=== PATIENT | female | born 1960 | race Two or more races ===

== ENCOUNTER 2020-05-04 20:04 | Inpatient (IN) | payer MEDICAID, OTHER ==
[~2020-05-04] VITALS: Ht 152.4 cm; Wt 66.8 kg
[2020-05-04] MEDS ORDERED: ACETAMINOPHEN 500 MG TAB PO ONE (20:30)
[2020-05-04 21:17] LABS: Basophils # (auto) 0 10 ^3/uL (0-0.2); Basophils % (auto) 0.6 % (0.0-2.0); Eosinophils # (auto) 0 10 ^3/uL (0-0.8); Hematocrit 41.3 % (36.0-46.0); Hemoglobin 14.1 g/dL (12.2-16.2); Lymphocytes # (auto) 0.6 10 ^3/uL (0.4-5.4); Lymphocytes % (auto) 8.5 % (10.0-50.0); Mean Corpuscular Hgb Conc. 34.2 g/dL (32.0-36.0); Mean Corpuscular Volume 90.7 fL (80.0-100.0); Monocytes # (auto) 0.4 10 ^3/uL (0-1.3); Monocytes % (auto) 5.8 % (0.0-12.0); Neutrophils % (auto) 85.1 % (37.0-80.0); Platelet Count (auto) 321 10^3/uL (140-450); Red Blood Cells 4.55 10^6/uL (4.0-5.20)
[2020-05-04 21:29] LABS: INR 0.97 (0.9-1.15); Partial Thromboplastin Time 31.3 sec (23.64-32.05)
[2020-05-04 21:33] LABS: Alanine Aminotransferase 106 U/L (13-56); Anion Gap 9 (5-15); Aspartate Aminotransferase 72 U/L (15-37); BUN/Creatinine Ratio 16.9; Blood Urea Nitrogen 15 mg/dL (7-18); Calcium 8.6 mg/dL (8.5-10.1); Carbon Dioxide 25 mmol/L (21-32); Chloride 97 mmol/L (98-107); GFR African American 83 mL/min; GFR Non-African American 69 mL/min; Glucose 188 mg/dL (74-106); Potassium 3.3 mmol/L (3.5-5.1); Sodium 131 mmol/L (136-145)
[2020-05-04 21:37] LABS: Alkaline Phosphatase 181 U/L (45-117); Bilirubin, Total 0.7 mg/dL (0.2-1.0); Total Protein 7.7 g/dL (6.4-8.2)
[2020-05-04] MEDS ORDERED: DOXYCYCLINE 100MG/250ML 250 ML IV ONE (22:15)
[2020-05-04] MEDS ORDERED: DexAMETHasone SOD PHOS 10MG/1ML VIAL INJ IV ONE (22:15)
[2020-05-05] MEDS ORDERED: TEMAZEPAM 15 MG CAP PO PRN (00:30)
[2020-05-05] MEDS ORDERED: ONDANSETRON HCL 4 MG/2 ML VIAL IV PRN ×2 (00:30→01:45)
[2020-05-05] MEDS ORDERED: ACETAMINOPHEN 500 MG TAB PO PRN ×2 (00:30→01:45)
[2020-05-05] MEDS ORDERED: DEXTROSE (50%) 50ML SYRG IV PRN ×2 (00:30→11:15)
[2020-05-05] MEDS ORDERED: NITROGLYCERIN 0.4 MG SL TAB SL PRN ×2 (00:30→01:45)
[2020-05-05] MEDS ORDERED: MORPHINE SULF INJ 2 MG/ML SYRINGE 1ML IV PRN ×3 (00:30→01:45)
[2020-05-05 01:02] LABS: Magnesium 2.1 mg/dL (1.6-2.6)
[2020-05-05 01:11] LABS: CRP High Sensitivity 16.5 mg/dL (< 0.3)
[2020-05-05] MEDS ORDERED: ENALAPRILAT 1.25 MG/ML-1ML VIAL IV ONE (01:15)
[2020-05-05] MEDS ORDERED: hydrOXYchloroQUINE SULFATE 200 MG TAB PO ONE (01:45)
[2020-05-05] MEDS ORDERED: AZITHROMYCIN 500MG/ 250ML 250 ML IV ONE (01:45)
[2020-05-05] MEDS ORDERED: DexAMETHasone SOD PHOS 4 MG/1ML SDV INJ IV ONE (01:45)
[2020-05-05 03:30] VITALS: BP 120/70
[2020-05-05] MEDS ORDERED: ALBUTEROL SULF HFA 90MCG INH 200DOSE IN SCH (06:00)
[2020-05-05] MEDS ORDERED: InsuLIN REG 1unit/0.01ml Soln (100units/ml) SC SCH (07:00)
[2020-05-05] MEDS ORDERED: ACCU-CHEK COMFORT CURVE STRIP VI SCH (07:00)
[2020-05-05 08:00] VITALS: BP 103/63
[2020-05-05] MEDS ORDERED: POTASSIUM CHL 20 Meq TABLET PO ONE (08:00)
[2020-05-05 08:34] VITALS: BP 103/63
[2020-05-05] MEDS: hydrOXYchloroQUINE SULFATE 200 MG TAB PO SCH (09:40)
[2020-05-05] MEDS: AZITHROMYCIN 500MG/ 250ML 250 ML IV SCH (09:40)
[2020-05-05] MEDS: DexAMETHasone SOD PHOS 10MG/1ML VIAL INJ IV SCH (09:40)
[2020-05-05] MEDS: CHOLECALCIFEROL (VITD3) 2,000 UNIT CAP PO SCH (09:41)
[2020-05-05 09:49] LABS: Basophils # (auto) 0 10 ^3/uL (0-0.2); Basophils % (auto) 0.2 % (0.0-2.0); Eosinophils # (auto) 0 10 ^3/uL (0-0.8); Hematocrit 44.4 % (36.0-46.0); Lymphocytes # (auto) 0.6 10 ^3/uL (0.4-5.4); Lymphocytes % (auto) 10.1 % (10.0-50.0); Mean Corpuscular Hemoglobin 31.1 pg (28.0-32.0); Mean Corpuscular Hgb Conc. 33.7 g/dL (32.0-36.0); Mean Corpuscular Volume 92.3 fL (80.0-100.0); Monocytes # (auto) 0.1 10 ^3/uL (0-1.3); Monocytes % (auto) 2.4 % (0.0-12.0); Neutrophils # (auto) 5.1 10 ^3/uL (1.6-8.6); Neutrophils % (auto) 87.3 % (37.0-80.0); Nucleated Red Blood Cells % 0.1 %; Platelet Count (auto) 400 10^3/uL (140-450); Red Blood Cells 4.81 10^6/uL (4.0-5.20); White Blood Cell 5.8 10^3/uL (4.4-10.8)
[2020-05-05] MEDS ORDERED: CHOLECALCIFEROL (VITD3) 2,000 UNIT CAP PO SCH (10:00)
[2020-05-05] MEDS ORDERED: FAMOTIDINE 20 MG TAB PO SCH (10:00)
[2020-05-05] MEDS ORDERED: HCTZ 25 MG TAB PO SCH (10:00)
[2020-05-05] MEDS ORDERED: ENOXAPARIN SOD 40 MG/0.4 ML SYRINGE SC SCH (10:00)
[2020-05-05] MEDS ORDERED: DOXYCYCLINE 100MG/250ML 250 ML IV SCH (10:00)
[2020-05-05] MEDS ORDERED: ASCORBIC ACID 1,000 MG TAB PO SCH (10:00)
[2020-05-05] MEDS ORDERED: DexAMETHasone SOD PHOS 10MG/1ML VIAL INJ IV SCH (10:00)
[2020-05-05] MEDS ORDERED: ENALAPRIL MALEATE 10 MG TAB PO SCH (10:00)
[2020-05-05] MEDS ORDERED: ZINC SULFATE 220mg CAP or TAB PO SCH (10:00)
[2020-05-05 10:07] LABS: Albumin 3.1 g/dL (3.4-5.0); BUN/Creatinine Ratio 16.3; Calcium 9.4 mg/dL (8.5-10.1); Potassium 3.9 mmol/L (3.5-5.1)
[2020-05-05 10:09] LABS: Bilirubin, Total 0.6 mg/dL (0.2-1.0); Total Protein 8.3 g/dL (6.4-8.2)
[2020-05-05] MEDS: ACCU-CHEK COMFORT CURVE STRIP VI SCH ×3 (12:10→21:51)
[2020-05-05] MEDS: InsuLIN REG 1unit/0.01ml Soln (100units/ml) SC SCH ×3 (12:11→21:55)
[2020-05-05 12:34] VITALS: BP 116/70
[2020-05-05] MEDS ORDERED: GLIP10TA9 PO (15:59)
[2020-05-05] MEDS ORDERED: HYDR12.56 PO (15:59)
[2020-05-05] MEDS ORDERED: ENAL2.5T7 PO (15:59)
[2020-05-05] MEDS ORDERED: FENO145T27 OR (15:59)
[2020-05-05 16:41] VITALS: BP 108/63
[2020-05-05] MEDS: glipiZIDE 5 MG TAB PO SCH (17:11)
[2020-05-05 22:00] VITALS: BP 122/72
[2020-05-06] VITALS (7 sets, daily range): BP systolic 98–123; BP diastolic 51–68
[2020-05-06] MEDS: ACCU-CHEK COMFORT CURVE STRIP VI SCH ×4 (06:54→22:54)
[2020-05-06] MEDS: InsuLIN REG 1unit/0.01ml Soln (100units/ml) SC SCH ×4 (06:55→22:55)
[2020-05-06] MEDS: glipiZIDE 5 MG TAB PO SCH ×2 (07:09→17:26)
[2020-05-06] MEDS: ENALAPRIL MALEATE 10 MG TAB PO SCH (09:21)
[2020-05-06] MEDS: hydrOXYchloroQUINE SULFATE 200 MG TAB PO SCH (09:21)
[2020-05-06] MEDS: DexAMETHasone SOD PHOS 10MG/1ML VIAL INJ IV SCH (09:21)
[2020-05-06] MEDS: HCTZ 25 MG TAB PO SCH (09:21)
[2020-05-06] MEDS: AZITHROMYCIN 500MG/ 250ML 250 ML IV SCH (09:21)
[2020-05-06] MEDS: CHOLECALCIFEROL (VITD3) 2,000 UNIT CAP PO SCH (09:22)
[2020-05-06 10:45] LABS: Basophils # (auto) 0 10 ^3/uL (0-0.2); Basophils % (auto) 0.1 % (0.0-2.0); Eosinophils # (auto) 0 10 ^3/uL (0-0.8); Neutrophils % (auto) 89.6 % (37.0-80.0)
[2020-05-06 10:48] LABS: Hematocrit 39.2 % (36.0-46.0); Hemoglobin 13.4 g/dL (12.2-16.2); Lymphocytes # (auto) 0.8 10 ^3/uL (0.4-5.4); Lymphocytes % (auto) 4.9 % (10.0-50.0); Mean Corpuscular Hgb Conc. 34.1 g/dL (32.0-36.0); Monocytes # (auto) 0.9 10 ^3/uL (0-1.3); Monocytes % (auto) 5.4 % (0.0-12.0); Platelet Count (auto) 484 10^3/uL (140-450); Red Blood Cells 4.31 10^6/uL (4.0-5.20); Red Cell Distribution Width 13.1 % (11.8-14.3); White Blood Cell 16.7 10^3/uL (4.4-10.8)
[2020-05-06 11:07] LABS: Potassium 3.7 mmol/L (3.5-5.1)
[2020-05-06 11:13] LABS: Albumin 2.8 g/dL (3.4-5.0); BUN/Creatinine Ratio 25.3; Bilirubin, Total 0.5 mg/dL (0.2-1.0); Calcium 8.8 mg/dL (8.5-10.1); Total Protein 7.4 g/dL (6.4-8.2)
[2020-05-06] MEDS: ALBUTEROL SULF HFA 90MCG INH 200DOSE IN SCH ×2 (13:57→21:54)
[2020-05-06] MEDS ORDERED: DexAMETHasone SOD PHOS 10MG/1ML VIAL INJ IV SCH (14:00)
[2020-05-07] VITALS (11 sets, daily range): BP systolic 108–137; BP diastolic 62–80
[2020-05-07] MEDS: ALBUTEROL SULF HFA 90MCG INH 200DOSE IN SCH ×3 (06:10→21:00)
[2020-05-07] MEDS: glipiZIDE 5 MG TAB PO SCH ×2 (06:30→17:05)
[2020-05-07] MEDS: ACCU-CHEK COMFORT CURVE STRIP VI SCH ×4 (06:31→22:12)
[2020-05-07] MEDS: InsuLIN REG 1unit/0.01ml Soln (100units/ml) SC SCH ×4 (06:31→22:14)
[2020-05-07] MEDS: ENALAPRIL MALEATE 10 MG TAB PO SCH (09:25)
[2020-05-07] MEDS: AZITHROMYCIN 500MG/ 250ML 250 ML IV SCH (09:25)
[2020-05-07] MEDS: DexAMETHasone SOD PHOS 10MG/1ML VIAL INJ IV SCH (09:25)
[2020-05-07] MEDS: HCTZ 25 MG TAB PO SCH (09:25)
[2020-05-07] MEDS: CHOLECALCIFEROL (VITD3) 2,000 UNIT CAP PO SCH (09:26)
[2020-05-07 10:11] LABS: Basophils # (auto) 0 10 ^3/uL (0-0.2); Basophils % (auto) 0.1 % (0.0-2.0); Eosinophils # (auto) 0 10 ^3/uL (0-0.8); Hematocrit 37.9 % (36.0-46.0); Hemoglobin 12.8 g/dL (12.2-16.2); Lymphocytes # (auto) 0.9 10 ^3/uL (0.4-5.4); Lymphocytes % (auto) 6.3 % (10.0-50.0); Mean Corpuscular Hemoglobin 30.7 pg (28.0-32.0); Mean Corpuscular Hgb Conc. 33.8 g/dL (32.0-36.0); Mean Corpuscular Volume 91.1 fL (80.0-100.0); Monocytes # (auto) 0.8 10 ^3/uL (0-1.3); Monocytes % (auto) 5.4 % (0.0-12.0); Neutrophils # (auto) 12.7 10 ^3/uL (1.6-8.6); Neutrophils % (auto) 88.2 % (37.0-80.0); Nucleated Red Blood Cells % 0.2 %; Platelet Count (auto) 470 10^3/uL (140-450); Red Blood Cells 4.16 10^6/uL (4.0-5.20); White Blood Cell 14.4 10^3/uL (4.4-10.8)
[2020-05-07 10:14] LABS: Albumin 2.6 g/dL (3.4-5.0); Calcium 8.6 mg/dL (8.5-10.1); Potassium 3.5 mmol/L (3.5-5.1)
[2020-05-07 10:18] LABS: BUN/Creatinine Ratio 24.7; Bilirubin, Total 0.6 mg/dL (0.2-1.0); Total Protein 7.1 g/dL (6.4-8.2)
[2020-05-07] MEDS ORDERED: REMDESIVIR 200 MG in NS 210ml LOADING DOSE ADULT IV ONE (18:00)
[2020-05-08 05:00] VITALS: BP 120/68
[2020-05-08 05:56] LABS: Basophils # (auto) 0 10 ^3/uL (0-0.2); Eosinophils # (auto) 0 10 ^3/uL (0-0.8); Eosinophils % (auto) 0.1 % (0.0-7.0); Lymphocytes # (auto) 1.1 10 ^3/uL (0.4-5.4); Monocytes # (auto) 0.7 10 ^3/uL (0-1.3)
[2020-05-08 05:58] LABS: Hematocrit 40.4 % (36.0-46.0); Hemoglobin 13.6 g/dL (12.2-16.2); Lymphocytes % (auto) 10.4 % (10.0-50.0); Mean Corpuscular Hemoglobin 30.9 pg (28.0-32.0); Mean Corpuscular Hgb Conc. 33.7 g/dL (32.0-36.0); Mean Corpuscular Volume 91.7 fL (80.0-100.0); Monocytes % (auto) 6.3 % (0.0-12.0); Neutrophils # (auto) 9.2 10 ^3/uL (1.6-8.6); Neutrophils % (auto) 83.2 % (37.0-80.0); Platelet Count (auto) 591 10^3/uL (140-450); Red Blood Cells 4.41 10^6/uL (4.0-5.20); Red Cell Distribution Width 12.9 % (11.8-14.3)
[2020-05-08 06:13] LABS: Calcium 8.9 mg/dL (8.5-10.1)
[2020-05-08 06:23] LABS: Albumin 2.6 g/dL (3.4-5.0); BUN/Creatinine Ratio 21.7; Bilirubin, Total 0.5 mg/dL (0.2-1.0); CRP High Sensitivity 12.9 mg/dL (< 0.3); Total Protein 7.6 g/dL (6.4-8.2)
[2020-05-08] MEDS: glipiZIDE 5 MG TAB PO SCH ×2 (06:52→18:35)
[2020-05-08] MEDS: ACCU-CHEK COMFORT CURVE STRIP VI SCH ×4 (06:53→22:04)
[2020-05-08] MEDS: InsuLIN REG 1unit/0.01ml Soln (100units/ml) SC SCH ×4 (06:57→22:06)
[2020-05-08] MEDS: ALBUTEROL SULF HFA 90MCG INH 200DOSE IN SCH ×3 (07:18→22:35)
[2020-05-08 09:00] VITALS: BP 123/69
[2020-05-08] MEDS: AZITHROMYCIN 500MG/ 250ML 250 ML IV SCH (10:58)
[2020-05-08] MEDS: DexAMETHasone SOD PHOS 10MG/1ML VIAL INJ IV SCH (10:58)
[2020-05-08] MEDS: CHOLECALCIFEROL (VITD3) 2,000 UNIT CAP PO SCH (11:01)
[2020-05-08] MEDS: HCTZ 25 MG TAB PO SCH (11:28)
[2020-05-08] MEDS: ENALAPRIL MALEATE 10 MG TAB PO SCH (11:29)
[2020-05-08 13:00] VITALS: BP 122/69
[2020-05-08 18:03] VITALS: BP 114/55
[2020-05-08] MEDS: REMDESIVIR 100mg in NS 230ml DAILYx4DAYS (NO VENT) IV SCH (18:17)
[2020-05-08 22:00] VITALS: BP 122/58
[2020-05-09 05:00] VITALS: BP 115/62
[2020-05-09] MEDS: InsuLIN REG 1unit/0.01ml Soln (100units/ml) SC SCH ×4 (06:12→22:20)
[2020-05-09] MEDS: ACCU-CHEK COMFORT CURVE STRIP VI SCH ×4 (06:12→22:19)
[2020-05-09 06:30] LABS: Basophils # (auto) 0 10 ^3/uL (0-0.2); Eosinophils # (auto) 0 10 ^3/uL (0-0.8); Eosinophils % (auto) 0.1 % (0.0-7.0)
[2020-05-09 06:32] LABS: Basophils % (auto) 0.2 % (0.0-2.0); Hematocrit 38.9 % (36.0-46.0); Hemoglobin 13.4 g/dL (12.2-16.2); Lymphocytes % (auto) 10.8 % (10.0-50.0); Mean Corpuscular Hemoglobin 31.2 pg (28.0-32.0); Mean Corpuscular Hgb Conc. 34.3 g/dL (32.0-36.0); Monocytes # (auto) 0.8 10 ^3/uL (0-1.3); Monocytes % (auto) 8.4 % (0.0-12.0); Neutrophils # (auto) 7.6 10 ^3/uL (1.6-8.6); Neutrophils % (auto) 80.5 % (37.0-80.0); Nucleated Red Blood Cells % 0.1 %; Platelet Count (auto) 646 10^3/uL (140-450); Red Blood Cells 4.28 10^6/uL (4.0-5.20); Red Cell Distribution Width 12.7 % (11.8-14.3); White Blood Cell 9.4 10^3/uL (4.4-10.8)
[2020-05-09 06:48] LABS: Calcium 8.7 mg/dL (8.5-10.1); Potassium 3.8 mmol/L (3.5-5.1)
[2020-05-09 06:53] LABS: Albumin 2.6 g/dL (3.4-5.0); BUN/Creatinine Ratio 27.4; Bilirubin, Total 0.5 mg/dL (0.2-1.0); Total Protein 7.2 g/dL (6.4-8.2)
[2020-05-09] MEDS: ALBUTEROL SULF HFA 90MCG INH 200DOSE IN SCH ×3 (06:55→22:05)
[2020-05-09] MEDS: glipiZIDE 5 MG TAB PO SCH ×2 (07:13→18:03)
[2020-05-09 09:00] VITALS: BP 129/65
[2020-05-09] MEDS: DexAMETHasone SOD PHOS 10MG/1ML VIAL INJ IV SCH (11:37)
[2020-05-09] MEDS: HCTZ 25 MG TAB PO SCH (11:38)
[2020-05-09] MEDS: OSELTAMIVIR 75 MG CAP PO SCH ×2 (11:38→22:19)
[2020-05-09] MEDS: AZITHROMYCIN 500MG/ 250ML 250 ML IV SCH (11:38)
[2020-05-09] MEDS: ENALAPRIL MALEATE 10 MG TAB PO SCH (11:39)
[2020-05-09] MEDS: CHOLECALCIFEROL (VITD3) 2,000 UNIT CAP PO SCH (11:39)
[2020-05-09 12:52] VITALS: BP 119/67
[2020-05-09 16:46] VITALS: BP 118/69
[2020-05-09] MEDS: REMDESIVIR 100mg in NS 230ml DAILYx4DAYS (NO VENT) IV SCH (18:26)
[2020-05-09 22:00] VITALS: BP 121/70
[2020-05-10 05:00] VITALS: BP 124/73
[2020-05-10] MEDS: ALBUTEROL SULF HFA 90MCG INH 200DOSE IN SCH ×3 (05:50→21:12)
[2020-05-10] MEDS: InsuLIN REG 1unit/0.01ml Soln (100units/ml) SC SCH ×4 (06:38→22:00)
[2020-05-10] MEDS: ACCU-CHEK COMFORT CURVE STRIP VI SCH ×4 (06:38→22:00)
[2020-05-10 06:58] LABS: Basophils # (auto) 0 10 ^3/uL (0-0.2); Basophils % (auto) 0.1 % (0.0-2.0); Eosinophils # (auto) 0 10 ^3/uL (0-0.8); Hemoglobin 13.6 g/dL (12.2-16.2); Lymphocytes # (auto) 1.3 10 ^3/uL (0.4-5.4); Mean Corpuscular Hgb Conc. 34.9 g/dL (32.0-36.0); Monocytes % (auto) 7.7 % (0.0-12.0)
[2020-05-10] MEDS: glipiZIDE 5 MG TAB PO SCH ×2 (06:58→17:58)
[2020-05-10 07:01] LABS: Eosinophils % (auto) 0.2 % (0.0-7.0); Hematocrit 38.8 % (36.0-46.0); Lymphocytes % (auto) 13.4 % (10.0-50.0); Mean Corpuscular Hemoglobin 31.6 pg (28.0-32.0); Mean Corpuscular Volume 90.5 fL (80.0-100.0); Monocytes # (auto) 0.8 10 ^3/uL (0-1.3); Neutrophils # (auto) 7.9 10 ^3/uL (1.6-8.6); Neutrophils % (auto) 78.6 % (37.0-80.0); Platelet Count (auto) 552 10^3/uL (140-450); Red Blood Cells 4.29 10^6/uL (4.0-5.20); White Blood Cell 10.1 10^3/uL (4.4-10.8)
[2020-05-10 07:17] LABS: Albumin 2.5 g/dL (3.4-5.0); Calcium 8.4 mg/dL (8.5-10.1); Potassium 3.6 mmol/L (3.5-5.1)
[2020-05-10 07:22] LABS: BUN/Creatinine Ratio 29.5; Bilirubin, Total 0.5 mg/dL (0.2-1.0); Total Protein 6.9 g/dL (6.4-8.2)
[2020-05-10 09:00] VITALS: BP 120/64
[2020-05-10] MEDS: ENALAPRIL MALEATE 10 MG TAB PO SCH (09:59)
[2020-05-10] MEDS: HCTZ 25 MG TAB PO SCH (10:00)
[2020-05-10] MEDS: DexAMETHasone SOD PHOS 10MG/1ML VIAL INJ IV SCH (10:01)
[2020-05-10] MEDS: CHOLECALCIFEROL (VITD3) 2,000 UNIT CAP PO SCH (10:01)
[2020-05-10] MEDS: OSELTAMIVIR 75 MG CAP PO SCH ×2 (10:01→22:00)
[2020-05-10 10:10] VITALS: BP 120/62
[2020-05-10 13:00] VITALS: BP 105/63
[2020-05-10 17:00] VITALS: BP 106/56
[2020-05-10] MEDS: REMDESIVIR 100mg in NS 230ml DAILYx4DAYS (NO VENT) IV SCH (17:58)
[2020-05-10 22:01] VITALS: BP 94/52
[2020-05-11 05:00] VITALS: BP 131/72
[2020-05-11] MEDS: ALBUTEROL SULF HFA 90MCG INH 200DOSE IN SCH ×3 (06:00→22:01)
[2020-05-11] MEDS: InsuLIN REG 1unit/0.01ml Soln (100units/ml) SC SCH ×4 (06:55→22:00)
[2020-05-11] MEDS: ACCU-CHEK COMFORT CURVE STRIP VI SCH ×4 (06:55→22:00)
[2020-05-11] MEDS: glipiZIDE 5 MG TAB PO SCH ×2 (06:55→18:11)
[2020-05-11 07:37] VITALS: BP 101/55
[2020-05-11 09:00] VITALS: BP 101/55
[2020-05-11 09:08] LABS: Hematocrit 41.2 % (36.0-46.0); Mean Corpuscular Hemoglobin 30.7 pg (28.0-32.0); Mean Corpuscular Hgb Conc. 33.9 g/dL (32.0-36.0); Mean Corpuscular Volume 90.5 fL (80.0-100.0); Platelet Count (auto) 589 10^3/uL (140-450); Red Blood Cells 4.55 10^6/uL (4.0-5.20); Red Cell Distribution Width 12.9 % (11.8-14.3); White Blood Cell 10.6 10^3/uL (4.4-10.8)
[2020-05-11 09:18] LABS: Basophils % (manual) 0 (0.0-2.0); Blast Cells 0; Promyelocytes % 0; Reactive Lymphocytes 0
[2020-05-11 09:29] LABS: Potassium 3.7 mmol/L (3.5-5.1)
[2020-05-11] MEDS: OSELTAMIVIR 75 MG CAP PO SCH ×2 (09:36→22:28)
[2020-05-11 09:37] LABS: Albumin 2.6 g/dL (3.4-5.0); BUN/Creatinine Ratio 31.6; Bilirubin, Total 0.5 mg/dL (0.2-1.0); Calcium 8.7 mg/dL (8.5-10.1); Total Protein 6.9 g/dL (6.4-8.2)
[2020-05-11] MEDS: DexAMETHasone SOD PHOS 10MG/1ML VIAL INJ IV SCH (09:37)
[2020-05-11] MEDS: CHOLECALCIFEROL (VITD3) 2,000 UNIT CAP PO SCH (09:37)
[2020-05-11] MEDS: HCTZ 25 MG TAB PO SCH (09:42)
[2020-05-11] MEDS: ENALAPRIL MALEATE 10 MG TAB PO SCH (09:42)
[2020-05-11 09:48] LABS: Band Neutrophils % (manual) 1; Eosinophils % (manual) 1 (0-7); Lymphocytes % (manual) 25 (10.0-50.0); Metamyelocytes % 1; Monocytes % (manual) 8 (0-12); Myelocytes % 1
[2020-05-11 12:52] VITALS: BP 105/59
[2020-05-11 17:09] VITALS: BP 106/52
[2020-05-11] MEDS: REMDESIVIR 100mg in NS 230ml DAILYx4DAYS (NO VENT) IV SCH (18:52)
[2020-05-11 22:00] VITALS: BP 108/60
[2020-05-11] MEDS: ASCORBIC ACID 500 MG TAB PO SCH (22:00)
[2020-05-12 05:00] VITALS: BP 130/76
[2020-05-12] MEDS: ALBUTEROL SULF HFA 90MCG INH 200DOSE IN SCH ×3 (06:00→22:00)
[2020-05-12] MEDS: glipiZIDE 5 MG TAB PO SCH ×2 (06:54→17:48)
[2020-05-12] MEDS: ACCU-CHEK COMFORT CURVE STRIP VI SCH ×4 (07:00→21:55)
[2020-05-12] MEDS: InsuLIN REG 1unit/0.01ml Soln (100units/ml) SC SCH ×4 (07:00→21:57)
[2020-05-12 07:06] LABS: Albumin 2.7 g/dL (3.4-5.0); Calcium 8.6 mg/dL (8.5-10.1); Potassium 3.7 mmol/L (3.5-5.1)
[2020-05-12 07:10] LABS: BUN/Creatinine Ratio 31.5; Bilirubin, Total 0.5 mg/dL (0.2-1.0); Total Protein 6.8 g/dL (6.4-8.2)
[2020-05-12 07:54] VITALS: BP 113/65
[2020-05-12 09:00] VITALS: BP 113/65
[2020-05-12] MEDS: DexAMETHasone SOD PHOS 10MG/1ML VIAL INJ IV SCH (09:31)
[2020-05-12] MEDS: THIAMINE 100mg/ml INJ (200mg/2ml VIAL) IV SCH (09:31)
[2020-05-12] MEDS: OSELTAMIVIR 75 MG CAP PO SCH ×2 (09:32→21:55)
[2020-05-12] MEDS: HCTZ 25 MG TAB PO SCH (09:32)
[2020-05-12] MEDS: ZINC SULFATE 220mg CAP or TAB PO SCH (09:32)
[2020-05-12] MEDS: ASCORBIC ACID 500 MG TAB PO SCH ×2 (09:33→21:55)
[2020-05-12] MEDS: ENALAPRIL MALEATE 10 MG TAB PO SCH (09:33)
[2020-05-12] MEDS ORDERED: CHOLECALCIFEROL (VITD3) 1,000UNIT=25mCg TAB PO SCH (10:00)
[2020-05-12 12:36] VITALS: BP 88/48
[2020-05-12] MEDS: CHOLECALCIFEROL (VITD3) 2,000 UNIT CAP PO SCH (12:59)
[2020-05-12 17:55] VITALS: BP 90/56
[2020-05-12] MEDS: ENOXAPARIN SOD 80 MG/0.8ML SYRINGE SC SCH (21:55)
[2020-05-12 22:00] VITALS: BP 89/60
[2020-05-13] VITALS (7 sets, daily range): BP systolic 94–107; BP diastolic 52–70
[2020-05-13] MEDS: ACCU-CHEK COMFORT CURVE STRIP VI SCH ×4 (06:20→22:00)
[2020-05-13] MEDS: InsuLIN REG 1unit/0.01ml Soln (100units/ml) SC SCH ×4 (06:21→22:00)
[2020-05-13] MEDS: ALBUTEROL SULF HFA 90MCG INH 200DOSE IN SCH ×3 (06:45→21:08)
[2020-05-13] MEDS: glipiZIDE 5 MG TAB PO SCH ×2 (06:49→17:55)
[2020-05-13] MEDS: HCTZ 25 MG TAB PO SCH (10:00)
[2020-05-13] MEDS: ENALAPRIL MALEATE 10 MG TAB PO SCH (10:00)
[2020-05-13] MEDS: OSELTAMIVIR 75 MG CAP PO SCH ×2 (10:22→22:00)
[2020-05-13] MEDS: ASCORBIC ACID 500 MG TAB PO SCH ×2 (10:22→22:00)
[2020-05-13] MEDS: ZINC SULFATE 220mg CAP or TAB PO SCH (10:23)
[2020-05-13] MEDS: ENOXAPARIN SOD 80 MG/0.8ML SYRINGE SC SCH ×2 (10:23→22:00)
[2020-05-13] MEDS: CHOLECALCIFEROL (VITD3) 2,000 UNIT CAP PO SCH (10:25)
[2020-05-13] MEDS: THIAMINE 100mg/ml INJ (200mg/2ml VIAL) IV SCH (10:25)
[2020-05-14 05:26] VITALS: BP 90/65
[2020-05-14] MEDS: glipiZIDE 5 MG TAB PO SCH (06:34)
[2020-05-14] MEDS: InsuLIN REG 1unit/0.01ml Soln (100units/ml) SC SCH (06:34)
[2020-05-14] MEDS: ACCU-CHEK COMFORT CURVE STRIP VI SCH (06:34)
[2020-05-14] MEDS: ALBUTEROL SULF HFA 90MCG INH 200DOSE IN SCH (07:23)
[2020-05-14 08:00] VITALS: BP 99/56
[2020-05-14 08:37] VITALS: BP 99/56
[2020-05-14 08:56] VITALS: BP 99/56
[2020-05-14] MEDS: ZINC SULFATE 220mg CAP or TAB PO SCH (09:52)
[2020-05-14] MEDS: OSELTAMIVIR 75 MG CAP PO SCH (09:52)
[2020-05-14] MEDS: CHOLECALCIFEROL (VITD3) 2,000 UNIT CAP PO SCH (09:52)
[2020-05-14] MEDS: ASCORBIC ACID 500 MG TAB PO SCH (09:52)
[2020-05-14] MEDS: ENOXAPARIN SOD 80 MG/0.8ML SYRINGE SC SCH (09:52)
[2020-05-14] MEDS: THIAMINE 100mg/ml INJ (200mg/2ml VIAL) IV SCH (09:55)
== END 2020-05-14 10:10 | disposition home health service (06) | DRG 137 ==
LOC: ER 20:04 → EDBD 20:04 → TELE 20:05 → TELE-EAST 05-05 02:45 → TELE-E-ADS 05-07 13:58
PROVIDERS: ADMIT Nurse Practitioner; ATTEND Internal Medicine
PROC: XW033E5 Introduction of Remdesivir Anti-infective into Peripheral Vein, Percutaneous Approach, New Technology Group 5 (ICD-10-PCS; principal; 2020-05-07)
DX: U07.1 COVID-19 (principal); J12.89 Other viral pneumonia; J96.01 Acute respiratory failure with hypoxia; E11.9 Type 2 diabetes mellitus without complications; I10 Essential (primary) hypertension; Z79.84 Long term (current) use of oral hypoglycemic drugs; Z79.899 Other long term (current) drug therapy; J98.11 Atelectasis; Z80.0 Family history of malignant neoplasm of digestive organs; Z82.5 Family history of asthma and other chronic lower respiratory diseases; Z83.3 Family history of diabetes mellitus
CPT/HCPCS: 36415; 71045; 76705; 80053; 82728; 82962; 83605; 83615; 83735; 83880; 84443; 84484; 85007; 85025; 85027; 85379; 85610; 85730; 86141; 87040; 87070; 87081; 87804; 87880; 93970; 94640; 96365; 96367; 96375; G0378; J1100; J1815; J3490

== ENCOUNTER 2025-04-13 22:05 | Inpatient (IN) | payer MEDICARE, OTHER ==
[~2025-04-13] VITALS: Ht 152.4 cm; Wt 95.0 kg
[~2025-04-13 22:05] MED LIST: ENAL1TAB42 PO; FENO145T27 OR; GLIP10TA9 PO; HYDR12.59 PO
[2025-04-13 22:42] LABS: Hematocrit 40.7 % (36.0-46.0); Hemoglobin 13.3 g/dL (12.2-16.2); Mean Corpuscular Hemoglobin 31.4 pg (28.0-32.0); Mean Corpuscular Volume 95.9 fL (80.0-100.0)
[2025-04-13 23:04] LABS: Alanine Aminotransferase 34 U/L (7-40); Albumin 3.9 g/dL (3.2-4.8); Alkaline Phosphatase 87 U/L (46-116); Anion Gap 12 (5-15); BUN/Creatinine Ratio 25.8 (10.0-20.0); Bilirubin, Total 0.8 mg/dL (0.2-1.0); Calcium 9.6 mg/dL (8.7-10.4); Carbon Dioxide 26 mmol/L (20-31); Potassium 4.6 mmol/L (3.5-5.1); Total Protein 6.2 g/dL (5.7-8.2)
[2025-04-13 23:05] LABS: Anisocytosis Slight; Total Cells Counted 100.0 (100)
[2025-04-13 23:06] LABS: Blood Urea Nitrogen 32 mg/dL (9-23); Chloride 91 mmol/L (98-107); Sodium 129 mmol/L (136-145)
[2025-04-13 23:16] LABS: Glucose 763 mg/dL (74-106)
[2025-04-14] VITALS (9 sets, daily range): BP systolic 95–122; BP diastolic 32–73; PULSE 78–96; RESP 14–18; TEMP 97.8–98.4; O2SAT 96–100
--- NOTE | 2025-04-14 00:14 | ED.PDOC ---
Musculoskeletal HPI Comments 65 y/o obese F, with a history of DM and HTN, presents with c/o bilateral leg swelling and pain and shortness of breath. Patient endorses on 3x day history of swelling and pain to her legs and becoming short of breath w/light exertion since yesterday. No recent trauma endorsed. No further significant history or recent travel reported. Patient denies any chest pain, numbness, tingling, weakness, or further associated symptoms. Chief Complaint: Extremity Swelling Time Seen by MD: 22:20 Reviewed Notes: Nurses Notes, Medications, Allergies Allergies: Coded Allergies: NO KNOWN ALLERGIES (Unverified , 05/04/20) Home Meds Reported Medications Hydrochlorothiazide (Hydrochlorothiazide) 12.5 Mg Cap, 12.5 MG PO DAILY for 30 Days, MG 05/05/20 Glipizide (Glipizide) 10 Mg Tab, 10 MG PO BID for 30 Days, MG 05/05/20 Enalapril Maleate (Enalapril Maleate) 2.5 Mg Tab, 20 MG PO DAILY for 30 Days, MG 05/05/20 Fenofibrate (FENOFIBRATE) 145 Mg Tab, 160 MG OR DAILY, TAB 05/05/20 Information Source: Patient Mode of Arrival: Ambulatory Location: Bilateral Extremity Location: Leg Timing: Days Prehospital treatment: None Severity: Moderate Able to Move Extremity: Yes Bear Weight: Fully Pain: Moderate Mechanism: None Circumstances: Other (none) Onset of Symptoms: Spontaneous Symptoms: Swelling, Pain DVT Risk Factors: NONE Last Tetanus: Unknown Past Medical History PAST MEDICAL HISTORY: DM, HTN Past Medical History (Other): Covid19 - PNA Surgical History: Denies all surgeries [employer] F[employer]ER History: Denies all AQU[employer]ER Hx Family History Family History: Reviewed,noncontributory to illness Social History Smoker: Non-Smoker Alcohol: Denies ETOH Use Drugs: Denies Drug Use Lives In: Home All Other Systems: Reviewed and Negative (Comprehensive systems review obtained and negative except for what is stated in the HPI.) Physical Exam General Appearance: No Apparent Distress, Obese HEENT: Normal ENT Inspection, Pharynx Normal, TMs Normal Neck: Full Range of Motion, Non-Tender, Normal, Normal Inspection Respiratory: Chest Non-Tender, Lungs Clear, No Accessory Muscle Use, No Respiratory Distress, Normal Breath Sounds Cardiovascular: No Edema, No JVD, No Murmur, No Gallop, Normal Peripheral Pulses, Regular Rate/Rhythm Breast Exam: Deferred Gastrointestinal: No Organomegaly, Non Tender, No Pulsatile Mass, Normal Bowel Sounds, Soft Genitalia: Deferred Pelvic: Deferred Rectal: Deferred Extremities: Leg edema (3+ pitting edema that extends up to the shins, bilaterally), No calf tenderness, Normal capillary refill, Normal range of motion, Swelling Musculoskeletal : Apperance: Normal Neurologic: Alert, corrections specialist II-XII nml as Tested, No Motor Deficits, Normal Affect, Normal Mood, No Sensory Deficits Cerebellar Function: Normal Reflexes: Normal Skin: Dry, Normal Color, Warm Lymphatic: No Adenopathy Was a procedure done? Was a procedure done?: No Differential Diagnosis EXT Differential Diagnosis: Cellulitis, CHF, Deep Vein Thrombosis, Contusion, Stra in, Arthritis X-Ray, Labs, Meds, VS Vital Signs Date Time Temp Pulse Resp B/P (MAP) Pulse Ox O2 Delivery O2 Flow Rate FiO2 04/13/25 22:17 97.5 92 18 142/60 (87) 95 97.5 Lab Test 04/13/25 23:24 04/13/25 22:29 Range/Units Troponin I High Sensitivity 4 4 </=34 ng/L White Blood Count 10.0 4.4-10.8 10^3/uL Red Blood Count 4.25 4.0-5.20 10^6/uL Hemoglobin 13.3 12.2-16.2 g/dL Hematocrit 40.7 36.0-46.0 % Mean Corpuscular Volume 95.9 80.0-100.0 fL Mean Corpuscular Hemoglobin 31.4 28.0-32.0 pg Mean Corpuscular Hemoglobin Concent 32.8 32.0-36.0 g/dL Red Cell Distribution Width 15.3 H 11.8-14.3 % Platelet Count 308 140-450 10^3/uL Mean Platelet Volume 7.8 6.9-10.8 fL Neutrophils (%) (Auto) 37.0-80.0 % Lymphocytes (%) (Auto) 10.0-50.0 % Monocytes (%) (Auto) 0.0-12.0 % Basophils (%) (Auto) 0.0-2.0 % Neutrophils # (Auto) 1.6-8.6 10 ^3/uL Lymphocytes # (Auto) 0.4-5.4 10 ^3/uL Monocytes # (Auto) 0-1.3 10 ^3/uL Differential Total Cells Counted 100.0 100 Neutrophils % (Manual) 95 H 37.0-80.0 Band Neutrophils % (Manual) 1 Lymphocytes % (Manual) 3 L 10.0-50.0 Monocytes % (Manual) 1 0-12 Eosinophils % (Manual) 0 0-7 Basophils % (Manual) 0 0.0-2.0 Metamyelocytes % (manual) 0 Myelocytes % (Manual) 0 Promyelocytes % (Manual) 0 Blast Cells % (Manual) 0 Reactive Lymphocytes 0 Platelet Estimate Adequate Anisocytosis (manual) Slight Sodium Level 129 L 136-145 mmol/L Potassium Level 4.6 3.5-5.1 mmol/L Chloride Level 91 L 98-107 mmol/L Carbon Dioxide Level 26 20-31 mmol/L Anion Gap 12 5-15 Blood Urea Nitrogen 32 H 9-23 mg/dL Creatinine 1.24 H 0.550-1.02 mg/dL Glomerular Filtration Rate Calc 48 >90 mL/min BUN/Creatinine Ratio 25.8 H 10.0-20.0 Serum Glucose 763 *H 74-106 mg/dL Calcium Level 9.6 8.7-10.4 mg/dL Total Bilirubin 0.8 0.2-1.0 mg/dL Aspartate Amino Transferase (AST) 20 13-40 U/L Alanine Aminotransferase (ALT) 34 7-40 U/L Alkaline Phosphatase 87 46-116 U/L B-Type Natriuretic Peptide 50.39 0-100 pg/mL Total Protein 6.2 5.7-8.2 g/dL Albumin 3.9 3.2-4.8 g/dL X-Ray, Labs, Meds, VS Comment Imaging: X-rays and CT scans were reviewed and interpreted by this provider, imaging shows no fractures and no pathological disease. Pending radiology review. Laboratory: Labs reviewed and interpreted by this provider. Elevated glucose, acute kidney training, patient will be admitted for hyperglycemia, and acute kidney injury Patient will be given 10 units insulin, blood sugars be checked T-score hours, patient will be started on normal saline bolus 1 L. Patient has prior medical visits reviewed. Med reconciliation performed Vital signs reviewed Time of 1ST Reevaluation: 22:50 Reevaluation 1ST: Unchanged Patient Education/Counseling: Diagnosis, Treatment Family Education/Counseling: No Family Present Additional Information Previous visits reviewed: May 04, 2020 encounter for PNA The following tests were ordered, and results were reviewed by me: CXR, UA, BNP, CBC, CMP, troponin, manual differential Additional Information was gathered from interviewing the following independent historians: N/A I reviewed and agreed with the following test results read by other providers: CXR I discussed treatment and results with medical personnel and: patient Departure 1 Departure Time of Disposition: 00:35 Impression: Primary Impression: Peripheral edema Additional Impressions: Hyperglycemia Acute kidney injury Disposition: ADMITTED INPATIENT Condition: Guarded Discharged With: Self Critical Care Note Critical Care Time?: No Stability Stability form required: No Heart Score Heart Score: Heart Score Response (Comments) Value History N/A 0 EKG N/A 0 Age N/A 0 Risk Factors N/A 0 Troponin N/A 0 Total 0 I personally scribed for RENITA CURRY ([email or web address]) on 04/14/25 at 00:14. Electronically submitted by Butch Palacios ([email or web address]). RENITA CURRY Apr 14, 2025 00:14
--- NOTE | 2025-04-14 00:24 | DVH ---
CHEST RADIOGRAPH Indication: sob Technique: Single frontal view of the chest was obtained COMPARISON: CHEST PORTABLE on DOS: 05/09/20, CHEST PORTABLE on DOS: 05/08/20, CHEST PORTABLE on DOS: , CHEST XRAY 1 VIEW on DOS: 05/04/20, CHEST PORTABLE on DOS: 05/04/20 FINDINGS: Lines and Tubes: None Lungs: Clear Pleura: No effusion. No pneumothorax. Cardiomediastinal contours: Unremarkable Bones: Unremarkable IMPRESSION: 1. No acute disease.
[2025-04-14] MEDS: InsuLIN REG 1unit/0.01ml Soln (100units/ml) SC ONE (01:56)
[2025-04-14] MEDS: SODIUM CHLORIDE 0.9% 1,000 ML IV ONE ×2 (01:56→14:45)
--- NOTE | 2025-04-14 04:14 | DVHHP2 ---
History of Present Illness Reason for Visit: Extremity swelling History of Present Illness 65-year-old female presents for evaluation of bilateral lower extremity swelling. Patient states the swelling has been going on for the past three days with associated shortness for breath with exertion. Denies chest pain, nausea or dizziness. Patient was also noted to be hyperglycemic, she reports being compliant with her diabetic medication. Past Medical History Hypertension diabetes mellitus Past Surgical History Denies Family History Noncontributory Smoke: No ALCOHOL: none Drugs: None Lives: with Family Review of Systems Review of Systems Review of systems are currently negative otherwise addressed in HPI. Allergies: Coded Allergies: NO KNOWN ALLERGIES (Unverified , 05/04/20) Exam Vital Signs Vital Signs Date Time Temp Pulse Resp B/P (MAP) Pulse Ox O2 Delivery O2 Flow Rate FiO2 04/14/25 02:00 85 17 118/51 (73) 99 04/14/25 00:37 98.2 98.2 Exam Gen: 65-year-old female in mild distress, obese Skin: Warm, dry, normal color and texture, no rash. HEENT: Normocephalic atraumatic, mucous membranes moist and pink. Neck: Cervical and supraclavicular nodes normal without enlargement, trachea is midline, thyroid gland is normal without masses. Pulmonary: Clear to auscultation and percussion bilaterally. Cardiac: Regular rate and rhythm. No murmur Abdomen: Soft, nontender, nondistended, bowel sounds present all 4 quadrants, no guarding, no rigidity, no organomegaly. Extremities: No cyanosis, clubbing, plus one bilateral pedal edema Neuro: Cranial nerves II through XII grossly intact, normal affect and speech, no focal motor deficits. Labs/Xrays ORDERING PHYSICIAN: RENITA CURRY PROCEDURE(s): CXR1 - CHEST XRAY 1 VIEW REASON: sob ORDER NUMBER(s): [id number], ACCESSION NUMBER(s): [id number] CHEST RADIOGRAPH Indication: sob Technique: Single frontal view of the chest was obtained COMPARISON: CHEST PORTABLE on DOS: 05/09/20, CHEST PORTABLE on DOS: 05/08/20, CH EST PORTABLE on DOS: 05/07/20, CHEST XRAY 1 VIEW on DOS: 05/04/20, CHEST PORTABLE on DOS: 05/04/20 FINDINGS: Lines and Tubes: None Lungs: Clear Pleura: No effusion. No pneumothorax. Cardiomediastinal contours: Unremarkable Bones: Unremarkable IMPRESSION: 1. No acute disease. Labs Test 04/14/25 02:49 04/13/25 23:24 04/13/25 22:29 Range/Units POC Glucose 327 H 70-106 mg/dl Troponin I High Sensitivity 4 </=34 ng/L White Blood Count 10.0 4.4-10.8 10^3/uL Red Blood Count 4.25 4.0-5.20 10^6/uL Hemoglobin 13.3 12.2-16.2 g/dL Hematocrit 40.7 36.0-46.0 % Mean Corpuscular Volume 95.9 80.0-100.0 fL Mean Corpuscular Hemoglobin 31.4 28.0-32.0 pg Mean Corpuscular Hemoglobin Concent 32.8 32.0-36.0 g/dL Red Cell Distribution Width 15.3 H 11.8-14.3 % Platelet Count 308 140-450 10^3/uL Mean Platelet Volume 7.8 6.9-10.8 fL Neutrophils (%) (Auto) 37.0-80.0 % Lymphocytes (%) (Auto) 10.0-50.0 % Monocytes (%) (Auto) 0.0-12.0 % Basophils (%) (Auto) 0.0-2.0 % Neutrophils # (Auto) 1.6-8.6 10 ^3/uL Lymphocytes # (Auto) 0.4-5.4 10 ^3/uL Monocytes # (Auto) 0-1.3 10 ^3/uL Differential Total Cells Counted 100.0 100 Neutrophils % (Manual) 95 H 37.0-80.0 Band Neutrophils % (Manual) 1 Lymphocytes % (Manual) 3 L 10.0-50.0 Monocytes % (Manual) 1 0-12 Eosinophils % (Manual) 0 0-7 Basophils % (Manual) 0 0.0-2.0 Metamyelocytes % (manual) 0 Myelocytes % (Manual) 0 Promyelocytes % (Manual) 0 Blast Cells % (Manual) 0 Reactive Lymphocytes 0 Platelet Estimate Adequate Anisocytosis (manual) Slight Sodium Level 129 L 136-145 mmol/L Potassium Level 4.6 3.5-5.1 mmol/L Chloride Level 91 L 98-107 mmol/L Carbon Dioxide Level 26 20-31 mmol/L Anion Gap 12 5-15 Blood Urea Nitrogen 32 H 9-23 mg/dL Creatinine 1.24 H 0.550-1.02 mg/dL Glomerular Filtration Rate Calc 48 >90 mL/min BUN/Creatinine Ratio 25.8 H 10.0-20.0 Serum Glucose 763 *H 74-106 mg/dL Calcium Level 9.6 8.7-10.4 mg/dL Total Bilirubin 0.8 0.2-1.0 mg/dL Aspartate Amino Transferase (AST) 20 13-40 U/L Alanine Aminotransferase (ALT) 34 7-40 U/L Alkaline Phosphatase 87 46-116 U/L B-Type Natriuretic Peptide 50.39 0-100 pg/mL Total Protein 6.2 5.7-8.2 g/dL Albumin 3.9 3.2-4.8 g/dL Assessment/Plan Assessment/Plan Assessment Uncontrolled diabetes mellitus Peripheral edema,? Heart failure Chronic kidney disease Hypertension Obesity Plan Admit the patient to Med [facility] to the hospitalist Q.4 hour Accu-Cheks with mild coverage Echocardiogram pending 40 mg Lasix daily Resume home medications Continue treatment per orders. Plan discussed with: Patient My Orders Orders - HAI MANTILLA Procedure Category Date Status Time Hemoglobin A1c LAB 04/14/25 Verified 04:07 Enalapril Tablet PHA 04/14/25 Verified (Vasotec Tablet) 10:00 (Nf) Fenofibrate PHA 04/14/25 Verified 22:00 Furosemide Tablet PHA 04/15/25 Verified (Lasix Tablet) 10:00 Basic Metabolic Panel LAB 04/15/25 Verified 04:00 Furosemide Injection PHA 04/14/25 Verified (Lasix Injection) 04:15 Consistent DIET 04/14/25 Verified Carb(Ccho)Diabetes Breakfast Glucose Blood PHA 04/14/25 Verified (Accu-Chek Comfort 08:00 Mild Sliding Scale PHA 04/14/25 Verified 08:00 Dextrose 50% Syringe PHA 04/14/25 Verified 04:15 Admit ADMIT 04/14/25 Verified 04:07 Ondansetron Hcl PHA 04/14/25 Verified (Zofran) 04:15 Echo 2d Mode Cardiac US 04/14/25 Verified DOP 04:07 Condition: Stable NATANAEL 04/14/25 Verified 04:07 Acetaminophen Tablet PHA 04/14/25 Verified (Tylenol Tablet) 04:15 Bedrest With Bathroom NATANAEL 04/14/25 Verified Privileg 04:07 Date of Service: Apr 14, 2025 Billing Provider: HAI MANTILLA Common Visit Codes: [id number] INP/OBS CARE (HIGH) HAI MANTILLA Apr 14, 2025 04:14
[2025-04-14] MEDS ORDERED: DEXTROSE (50%) 50ML SYRG IV PRN ×2 (04:15→18:15)
[2025-04-14] MEDS ORDERED: ONDANSETRON HCL 4 MG/2 ML VIAL IV PRN (04:15)
[2025-04-14] MEDS: FUROSEMIDE 20 MG/2 ML VIAL IV ONE (04:47)
[2025-04-14 04:52] LABS: Urine Budding Yeast OCCASIONAL /hpf (None Seen); Urine Protein, UAD Negative (Negative)
[2025-04-14] MEDS: InsuLIN REG 1unit/0.01ml Soln (100units/ml) SC SCH ×2 (08:00→22:18)
[2025-04-14] MEDS: ACCU-CHEK COMFORT CURVE STRIP VI SCH ×2 (08:00→22:09)
[2025-04-14] MEDS: ENALAPRIL MALEATE 10 MG TAB PO SCH (09:39)
[2025-04-14] MEDS: INSULIN LANTUS (GLARGINE) 1 /0.01ml (100units/ml) SC SCH (10:00)
[2025-04-14 10:55] LABS: Alanine Aminotransferase 36 U/L (7-40); Albumin 4.1 g/dL (3.2-4.8); Alkaline Phosphatase 80 U/L (46-116); Anion Gap 10 (5-15); BUN/Creatinine Ratio 30.1 (10.0-20.0); Calcium 9.7 mg/dL (8.7-10.4); Carbon Dioxide 29 mmol/L (20-31); Sodium 137 mmol/L (136-145); Total Protein 6.3 g/dL (5.7-8.2)
[2025-04-14 10:56] LABS: Bilirubin, Total 0.7 mg/dL (0.2-1.0); Blood Urea Nitrogen 25 mg/dL (9-23); Chloride 98 mmol/L (98-107); Glucose 311 mg/dL (74-106); Potassium 3.4 mmol/L (3.5-5.1)
[2025-04-14] MEDS: PREGABALIN 25 MG CAP PO SCH (15:27)
[2025-04-14] MEDS ORDERED: POTASSIUM CHL 20MEQ/100ML 100 ML IV ONE (16:15)
--- NOTE | 2025-04-14 17:26 | DVHPNRES ---
Progress Note Date Seen: Apr 14, 2025 Resident Creating Document: REYNALDO US RESIDENT Medical Necessity Reason Pt with a Central, PICC or Fol: No Subjective Review of Systems 65-year-old female with past history of diabetes mellitus and hypertension presented with bilateral swollen feet and numbness in the left foot since yesterday evening, which led to loss of balance. History of tingling and changes in the vision. No history of loss of consciousness, dizziness or bowel or bladder changes. Blood glucose at the time of presentation in ED was 763 mg/dL. Personal history: No alcohol smoking or recreational drugs ROS: Constitutional: Denies weight loss, fever and chills. HEENT: Changes in vision over last 3 years. Respiratory: Denies shortness of breath and cough Cardiovascular: Denies chest discomfort or palpitations GI: Denies abdominal pain, nausea, vomiting and diarrhea. : Denies dysuria and urinary frequency. Musculoskeletal: Denies myalgias and joint pain Skin: Denies rash and pruritus. Neurological: Denies dizziness, headache or hearing problems Objective vital signs Vital Sign Date Time Temp Pulse Resp B/P (MAP) Pulse Ox O2 Delivery O2 Flow Rate FiO2 04/14/25 16:54 98.4 85 16 108/54 (72) 98 98.4 04/14/25 14:15 Room Air* 0 21 Total Intake and Output 04/13/25 04/13/25 04/14/25 15:00 23:00 07:00 Intake Total 1000 ml Balance 1000 ml medications Current Medications Medications Dose Ordered Sig/Oniel Route Start Time Stop Time Status Last Admin Dose Admin Enalapril Maleate 20 mg DAILY PO 04/14/25 10:00 04/14/25 09:39 20 MG Patient Own Medication 160 mg HS PO 04/14/25 22:00 Future Hold Furosemide 40 mg DAILY PO 04/15/25 10:00 Diagnostic Test (Pha) 1 strip IQ4HR 04/14/25 08:00 04/14/25 15:35 1 STRIP Insulin Human Regular IQ4HR SC 04/14/25 08:00 04/14/25 15:36 8 UNITS Dextrose 50 ml UD PRN IV 04/14/25 04:15 Ondansetron HCl 4 mg Q4HP PRN IV 04/14/25 04:15 Acetaminophen 650 mg Q6HP PRN PO 04/14/25 04:15 Insulin Glargine 20 units DAILY@1000 SC 04/14/25 10:00 04/14/25 10:00 20 UNITS Pregabalin 25 mg BID PO 04/14/25 14:56 04/14/25 15:27 25 MG Examination Physical examination General: Patient alert and oriented in person, place and time. Patient following commands. HEENT: Normocephalic, atraumatic, moist mucous membranes Respiratory/pulmonary: Clear lungs bilaterally, no associated crackles or wheezes. Cardiovascular: Normal heart sounds S1 and S2 with no associated murmurs Extremities: Pitting edema present in lower extremities bilaterally. Sensation equal in both limbs. Bruising around the right wrist and left knee Skin: No rashes or pruritus. Neurological: Intact cranial nerves with no focal neurologic deficits laboratory and microbiology Laboratory Tests 04/14/25 05:50 04/13/25 22:29 Test 04/14/25 05:50 Range/Units Serum Glucose 311 H 74-106 mg/dL Problem List/Assessment/Plan Problem List/Assessment/Plan 1. Acute renal failure, prerenal, vasomotor nephropathy 2. Type 2 diabetes mellitus, hyperglycemia, neuropathy, nephropathy - A1c is 14 - Started on Lantus 20 units and regular insulin sliding scale - Increased BUN, creatinine - CXR is unremarkable - Ordered echocardiogram - Started normal saline infusion at 50 mL/hour to correct dehydration - Started on pregabalin 25 mg b.i.d. p.o. 3. DVT - Doppler done 4. Hyponatremia 5. Hypokalemia 6. Hypochloremia - Potassium was 3.4 mmol/L. Managed with bolus IV KCl 20 mEq. - Hyponatremia possibly due to hypoglycemia; Pseudohyponatremia - We will monitor patient for electrolyte abnormalities Goals of care discussed with the patient at bedside for more than 35 minutes. Plan discussed with Dr. Alegria Plan discussed with: Patient My Orders My Orders Orders - REYNALDO US Procedure Category Date Status Time Sodium Chloride 0.9% PHA 04/14/25 In Process 14:45 Pregabalin Capsule PHA 04/14/25 Logged (Lyrica Capsule) 14:56 Potassium Chl PHA 04/14/25 In Process 20meq/100ml 16:15 REYNALDO US RESIDENT Apr 14, 2025 17:26
[2025-04-14] MEDS: POTASSIUM EFFERVESENT TAB 25 MEQ PO ONE (17:57)
--- NOTE | 2025-04-14 19:18 | DVH ---
CLINICAL HISTORY: bilat isolated lower ext swelling TECHNIQUE: Color and duplex doppler imaging of the bilateral lower extremity veins was performed. Ves keon compression if possible was also performed. WID: COMPARISON: VENOUS DVT BILAT on DOS: 05/12/20 FINDINGS: Right Lower Extremity: Right common femoral vein: Normal compressibility and flow. Right femoral vein: Normal compressibility and flow. Right popliteal vein: Normal compressibility and flow. Proximal calf veins are normally compressible. Left Lower Extremity: Left common femoral vein: Normal compressibility and flow. Left femoral vein: Normal compressibility and flow. Left popliteal vein: Normal compressibility and flow. Proximal calf veins are normally compressible. IMPRESSION: NO SONOGRAPHIC EVIDENCE FOR DEEP VENOUS THROMBOSIS IN THE BILATERAL LOWER EXTREMITY VEINS.
[2025-04-14] MEDS ORDERED: FENOFIBRATE 160 MG PO SCH (22:00)
[2025-04-15] VITALS (8 sets, daily range): BP systolic 91–135; BP diastolic 47–77; PULSE 81–120; RESP 14–18; TEMP 97.6–99.9; O2SAT 91–98
--- NOTE | 2025-04-15 06:32 | DVHPNRES ---
Progress Note Date Seen: Apr 15, 2025 Resident Creating Document: REYNALDO US RESIDENT Medical Necessity Reason Pt with a Central, PICC or Fol: No Subjective Review of Systems Review of Systems 65-year-old female with past history of diabetes mellitus and hypertension presented with bilateral swollen feet and numbness in the left foot since, which led to loss of balance. History of tingling in both feet and changes in the vision. No history of loss of consciousness, dizziness, burning micturition or bowel or bladder changes. Blood glucose at the time of presentation in ED was 763 mg/dL. Personal history: No alcohol smoking or recreational drugs ROS: Constitutional: Denies weight loss, fever and chills. HEENT: Changes in vision over last 3 years. Respiratory: Denies shortness of breath and cough Cardiovascular: Denies chest discomfort or palpitations GI: Denies abdominal pain, nausea, vomiting and diarrhea. : Denies dysuria and urinary frequency. Musculoskeletal: Denies myalgias and joint pain Skin: Denies rash and pruritus. Neurological: Denies dizziness, headache or hearing problems Objective vital signs Vital Sign Date Time Temp Pulse Resp B/P (MAP) Pulse Ox O2 Delivery O2 Flow Rate FiO2 04/15/25 05:00 99.9 85 14 135/77 (96) 91 99.9 04/14/25 20:00 Room Air* 0 21 Total Intake and Output 04/14/25 04/14/25 04/15/25 15:00 23:00 07:00 Intake Total 0 ml 200 ml Balance 0 ml 200 ml medications Current Medications Medications Dose Ordered Sig/Oniel Route Start Time Stop Time Status Last Admin Dose Admin Enalapril Maleate 20 mg DAILY PO 04/14/25 10:00 04/14/25 09:39 20 MG Patient Own Medication 160 mg HS PO 04/14/25 22:00 Hold Furosemide 40 mg DAILY PO 04/15/25 10:00 Ondansetron HCl 4 mg Q4HP PRN IV 04/14/25 04:15 Acetaminophen 650 mg Q6HP PRN PO 04/14/25 04:15 Insulin Glargine 20 units DAILY@1000 SC 04/14/25 10:00 04/14/25 10:00 20 UNITS Pregabalin 25 mg BID PO 04/14/25 14:56 04/14/25 22:04 25 MG Diagnostic Test (Pha) 1 strip ACHS 04/14/25 22:00 04/15/25 06:16 1 STRIP Insulin Human Regular HS SC 04/14/25 22:00 04/14/25 22:18 6 UNITS Insulin Human Regular AC SC 04/15/25 07:00 Dextrose 50 ml UD PRN IV 04/14/25 18:15 Examination Physical examination General: Patient alert and oriented in person, place and time. Patient following commands. HEENT: Normocephalic, atraumatic, moist mucous membranes Respiratory/pulmonary: Clear lungs bilaterally, no associated crackles or wheezes. Cardiovascular: Normal heart sounds S1 and S2 with no associated murmurs Extremities: Pitting edema present in lower extremities bilaterally. Sensation equal in both limbs. Bruising around the right wrist and left knee Skin: No rashes or pruritus. Neurological: Intact cranial nerves with no focal neurologic deficits laboratory and microbiology laboratory and microbiology Laboratory Tests 04/14/25 05:50 04/13/25 22:29 Test 04/14/25 05:50 Range/Units Serum Glucose 311 H 74-106 mg/dL Problem List/Assessment/Plan Problem List/Assessment/Plan 1. Acute renal failure, prerenal, vasomotor nephropathy 2. Type 2 diabetes mellitus, hyperglycemia, neuropathy, nephropathy 3. Leukocytosis SIRS without acute organ damage - Neutrophilia seen on CBC - A1c is 14 - Continue on Lantus 20 units and regular insulin sliding scale - Increased BUN, creatinine - CXR is unremarkable - Ordered echocardiogram - Improvement in dehydration; Discontinued IV fluids - Continue pregabalin 25 mg b.i.d. p.o. 4. DVT - Doppler negative for DVT. 5. Hyponatremia 6. Hypokalemia 7. Hypochloremia - Potassium has normalized with treatment. - Hyponatremia possibly due to hypoglycemia; Pseudohyponatremia - We will monitor patient for electrolyte abnormalities Goals of care discussed with the patient at bedside for more than 35 minutes. Plan discussed with Dr. Alegria Plan discussed with: Patient My Orders My Orders Orders - REYNALDO US RESIDENT Procedure Category Date Status Time Sodium Chloride 0.9% PHA 04/14/25 In Process 14:45 Pregabalin Capsule PHA 04/14/25 Logged (Lyrica Capsule) 14:56 Complete Blood Count LAB 04/15/25 Logged 04:00 Glucose Blood PHA 04/14/25 In Process (Accu-Chek Comfort 22:00 Insulin R (Human) PHA 04/14/25 In Process (Insulin R) 22:00 Insulin R (Human) PHA 04/15/25 In Process (Insulin R) 07:00 Dextrose 50% Syringe PHA 04/14/25 In Process 18:15 REYNALDO US RESIDENT Apr 15, 2025 06:32
[2025-04-15] MEDS: InsuLIN REG 1unit/0.01ml Soln (100units/ml) SC SCH ×2 (06:56→16:32)
[2025-04-15 08:36] LABS: Chloride 98 mmol/L (98-107); Potassium 3.6 mmol/L (3.5-5.1); Sodium 138 mmol/L (136-145)
[2025-04-15 08:37] LABS: Calcium 9.8 mg/dL (8.7-10.4); Hematocrit 41.4 % (36.0-46.0); Hemoglobin 14.2 g/dL (12.2-16.2); Mean Corpuscular Hemoglobin 31.9 pg (28.0-32.0); Mean Corpuscular Volume 93.1 fL (80.0-100.0); Nucleated Red Blood Cells % 0.2 %
[2025-04-15 08:38] LABS: Anion Gap 11 (5-15); Carbon Dioxide 29 mmol/L (20-31)
[2025-04-15 08:43] LABS: BUN/Creatinine Ratio 22.9 (10.0-20.0); Blood Urea Nitrogen 16 mg/dL (9-23)
[2025-04-15 08:45] LABS: Glucose 168 mg/dL (74-106)
[2025-04-15] MEDS: FUROSEMIDE 40 MG TAB PO SCH (09:31)
[2025-04-15] MEDS ORDERED: DEXTROSE (50%) 50ML SYRG IV PRN (13:00)
[2025-04-15] MEDS: ACCU-CHEK COMFORT CURVE STRIP VI SCH (16:31)
--- NOTE | 2025-04-15 17:41 | DVHSR ---
APPROVED REPORT EXAM: LIMITED Two-dimensional and M-mode echocardiogram with Doppler and color Doppler. Blood Pressure: 115/67 mmHg INDICATION Dyspnea EF RISK FACTORS Obesity: Height: 5', Weight: 186 DIMENSIONS LVDd4.0 (3.8-5.7cm)LA (2D)3.4 (1.9-4.0cm)Aortic Root2.9 (2.0-3.7cm) LVDs2.8 (2.5-4.0cm)LA (MM) (1.9-4.0cm)Aortic Cusp Exc1.5 (1.5-2.0cm) EF (%) 56.0 (55-70%)Rt. Atrium3.2 (1.9-4.0cm)Asc. Aorta cm IVSd0.9 (0.7-1.1cm)RV (D) (1.8-2.4cm) PWd0.9 (0.7-1.1cm) Mitral Valve MitralMitral Stenosis E wave0.90m/sMV Mean GR.mmHg A wave1.40m/sMV Peak GR.mmHg E/A ratio0.62D MVAcm2 Aortic Valve Aortic ValveAortic Stenosis V11.00m/Albertina Mean GR.5mmHg V21.50m/Albertina Peak GR.10mmHg LVOT Diameter2.0 (1.8-2.4cm)Doppler AVA2.09cm2 Pulmonic Valve V20.70m/s Tricuspid Valve TR Velocity2.20m/s [id number] Other Information Quality : Technically LimitedRhythm : Technically limited study due to body habitus. Conclusion LVEF 60-65%, mild LVH. Mild diastolic dysfunction RV normal Valves not well visualized, grossly normal
[2025-04-15] MEDS: EMPAGLIFLOZIN 10 MG TAB PO SCH (17:49)
[2025-04-15 19:18] LABS: Hematocrit 35.8 % (36.0-46.0); Hemoglobin 12.5 g/dL (12.2-16.2); Mean Corpuscular Hemoglobin 32.3 pg (28.0-32.0); Mean Corpuscular Volume 92.3 fL (80.0-100.0); Nucleated Red Blood Cells % 0.1 %
[2025-04-15 19:30] LABS: Anion Gap 9 (5-15); Calcium 8.8 mg/dL (8.7-10.4); Carbon Dioxide 30 mmol/L (20-31)
[2025-04-15 19:31] LABS: Chloride 97 mmol/L (98-107); Potassium 3.3 mmol/L (3.5-5.1); Sodium 136 mmol/L (136-145)
[2025-04-15 19:35] LABS: BUN/Creatinine Ratio 22.9 (10.0-20.0); Blood Urea Nitrogen 19 mg/dL (9-23)
[2025-04-15 19:38] LABS: Glucose 234 mg/dL (74-106)
[2025-04-16] VITALS (8 sets, daily range): BP systolic 95–113; BP diastolic 57–73; PULSE 87–108; RESP 12–19; TEMP 98.1–100.2; O2SAT 93–97
[2025-04-16 09:43] LABS: Hematocrit 35.5 % (36.0-46.0); Hemoglobin 12.1 g/dL (12.2-16.2); Mean Corpuscular Hemoglobin 31.7 pg (28.0-32.0); Mean Corpuscular Volume 93.0 fL (80.0-100.0); Nucleated Red Blood Cells % 0.2 %
[2025-04-16 09:48] LABS: Chloride 98 mmol/L (98-107); Sodium 136 mmol/L (136-145)
[2025-04-16 09:49] LABS: Anion Gap 8 (5-15); Carbon Dioxide 30 mmol/L (20-31)
[2025-04-16 09:50] LABS: Calcium 8.8 mg/dL (8.7-10.4)
[2025-04-16 09:54] LABS: BUN/Creatinine Ratio 23.1 (10.0-20.0); Blood Urea Nitrogen 15 mg/dL (9-23)
[2025-04-16] MEDS: POTASSIUM EFFERVESENT TAB 25 MEQ PO ONE ×2 (09:58→11:21)
[2025-04-16 10:08] LABS: Glucose 166 mg/dL (74-106); Potassium 3.0 mmol/L (3.5-5.1)
[2025-04-16] MEDS: INSULIN LISPRO (HUMAN) 100 UNITS/ML ML SC SCH (16:37)
[2025-04-16 16:45] LABS: Potassium 3.5 mmol/L (3.5-5.1)
[2025-04-16] MEDS: ACETAMINOPHEN 325 MG TAB PO PRN (16:47)
[2025-04-16 16:51] LABS: Magnesium 1.7 mg/dL (1.6-2.6)
--- NOTE | 2025-04-16 16:54 | DVHPNRES ---
Progress Note Date Seen: Apr 16, 2025 Resident Creating Document: REYNALDO US RESIDENT Medical Necessity Reason Pt with a Central, PICC or Fol: No Subjective Review of Systems 65-year-old female with past history of diabetes mellitus and hypertension presented with bilateral swollen feet and numbness in the left foot, which led to loss of balance. History of tingling in both feet and changes in the vision. No history of loss of consciousness, dizziness, burning micturition or bowel or bladder changes. Blood glucose at the time of presentation in ED was 763 mg/dL. 04/16/25: Her swelling has reduced. Hypokalemia being managed with oral potassium supplementation as needed. Will continue monitoring & managing. Personal history: No alcohol smoking or recreational drugs ROS: Constitutional: Denies weight loss, fever and chills. HEENT: Changes in vision over last 3 years. Respiratory: Denies shortness of breath and cough Cardiovascular: Denies chest discomfort or palpitations GI: Denies abdominal pain, nausea, vomiting and diarrhea. : Denies dysuria and urinary frequency. Musculoskeletal: Denies myalgias and joint pain Skin: Denies rash and pruritus. Neurological: Denies dizziness, headache or hearing problems Objective vital signs Vital Sign Date Time Temp Pulse Resp B/P (MAP) Pulse Ox O2 Delivery O2 Flow Rate FiO2 04/16/25 13:00 98.9 95 16 106/63 (77) 93 98.9 04/16/25 08:00 Room Air* 0 21 Total Intake and Output 04/15/25 04/15/25 04/16/25 15:00 23:00 07:00 Intake Total 1800 ml 700 ml Balance 1800 ml 700 ml medications Current Medications Medications Dose Ordered Sig/Oniel Route Start Time Stop Time Status Last Admin Dose Admin Enalapril Maleate 20 mg DAILY PO 04/14/25 10:00 04/16/25 09:00 20 MG Patient Own Medication 160 mg HS PO 04/14/25 22:00 Hold Furosemide 40 mg DAILY PO 04/15/25 10:00 04/16/25 08:59 40 MG Ondansetron HCl 4 mg Q4HP PRN IV 04/14/25 04:15 Acetaminophen 650 mg Q6HP PRN PO 04/14/25 04:15 04/16/25 16:47 650 MG Insulin Glargine 20 units DAILY@1000 SC 04/14/25 10:00 04/16/25 11:29 20 UNITS Pregabalin 25 mg BID PO 04/14/25 14:56 04/16/25 08:59 25 MG Diagnostic Test (Pha) 1 strip ACHS 04/15/25 17:00 04/16/25 16:36 1 STRIP Insulin Human Regular ACHS SC 04/15/25 17:00 04/16/25 11:29 3 UNITS Dextrose 50 ml UD PRN IV 04/15/25 13:00 Empaglifozin 10 mg DAILY PO 04/15/25 17:45 04/16/25 08:58 10 MG Insulin Human Lispro 4 units AC SC 04/16/25 17:00 04/16/25 16:37 4 UNITS Examination General: Patient alert and oriented in person, place and time. Patient following commands. HEENT: Normocephalic, atraumatic, moist mucous membranes Respiratory/pulmonary: Clear lungs bilaterally, no associated crackles or wheezes. Cardiovascular: Normal heart sounds S1 and S2 with no associated murmurs Extremities: Pitting edema present in lower extremities bilaterally. Sensation equal in both limbs. Bruising around the right wrist and left knee. Skin: No rashes or pruritus. Neurological: Intact cranial nerves with no focal neurologic deficits laboratory and microbiology Laboratory Tests 04/16/25 16:07 04/16/25 09:24 Test 04/16/25 09:24 Range/Units Serum Glucose 166 H 74-106 mg/dL Problem List/Assessment/Plan Problem List/Assessment/Plan 1. Acute renal failure, prerenal, vasomotor nephropathy 2. Leukocytosis SIRS without acute organ damage - Labs show increased BUN, creatinine - Neutrophilia seen on CBC - CXR is unremarkable - Improvement in dehydration; Discontinued IV fluids. 3. Type 2 diabetes mellitus, hyperglycemia, neuropathy, nephropathy - A1c is 14 - Continue pregabalin 25 mg b.i.d. p.o. - Hyperglycemia managed with Lantus and regular insulin sliding scale - Started on basal bolus insulin. Continue Lantus 20 units. Start lispro 4 units with before each meal. - Nephropathy ruled out 4. Hypertension - Echocardiogram shows left mild LVH, possibly due to hypertension. Mild diastolic dysfunction. - Continue furosemide 40 mg and enalapril 20 mg daily 4. DVT 5. Venous insufficiency - Doppler negative for DVT. 6. Hyponatremia 7. Hypokalemia 8. Hypochloremia - K+ 3.0 mg per dL. Oral potassium supplementation for hypokalemia. - Hyponatremia possibly due to hypoglycemia; Pseudohyponatremia - We will continue monitoring and managing Goals of care discussed with the patient at bedside for more than 35 minutes. Code- full Plan discussed with Dr. Alegria Plan discussed with: Patient My Orders My Orders Orders - REYNALDO US Procedure Category Date Status Time Potassium LAB 04/16/25 In Process 14:54 Magnesium LAB 04/16/25 In Process 14:54 Complete Blood Count LAB 04/17/25 Verified 04:00 Comprehensive LAB 04/17/25 Verified Metabolic Panel 04:00 REYNALDO US RESIDENT Apr 16, 2025 16:54
[2025-04-17 01:00] VITALS: BP 108/56; PULSE 91; RESP 18; TEMP 98.5; O2SAT 97
[2025-04-17 05:00] VITALS: BP 113/68; PULSE 84; RESP 18; TEMP 98.1; O2SAT 97
[2025-04-17 07:21] LABS: Hematocrit 36.5 % (36.0-46.0); Hemoglobin 12.5 g/dL (12.2-16.2); Mean Corpuscular Hemoglobin 31.7 pg (28.0-32.0); Mean Corpuscular Volume 92.5 fL (80.0-100.0); Nucleated Red Blood Cells % 0.0 %
[2025-04-17 07:44] LABS: Alanine Aminotransferase 31 U/L (7-40); Albumin 3.6 g/dL (3.2-4.8); Alkaline Phosphatase 93 U/L (46-116); Anion Gap 12 (5-15); BUN/Creatinine Ratio 20.9 (10.0-20.0); Bilirubin, Total 1.1 mg/dL (0.2-1.0); Blood Urea Nitrogen 14 mg/dL (9-23); Calcium 9.2 mg/dL (8.7-10.4); Carbon Dioxide 28 mmol/L (20-31); Glucose 103 mg/dL (74-106); Sodium 137 mmol/L (136-145)
[2025-04-17 07:51] LABS: Chloride 97 mmol/L (98-107); Potassium 3.1 mmol/L (3.5-5.1); Total Protein 5.6 g/dL (5.7-8.2)
[2025-04-17 08:00] VITALS: PULSE 74; RESP 17
[2025-04-17] MEDS: POTASSIUM CHL 20 Meq TABLET PO ONE (08:42)
[2025-04-17 09:00] VITALS: BP 107/62; PULSE 75; RESP 18; TEMP 98.4; O2SAT 99
[2025-04-17] MEDS: POTASSIUM EFFERVESENT TAB 25 MEQ PO ONE (12:08)
[2025-04-17 13:45] VITALS: BP 112/69; TEMP 36.9
--- NOTE | 2025-04-17 13:59 | DVHDSRES ---
Discharge Summary Date of Admission Resident Creating Document: CLAUDETTE THORNTON RESIDENT Apr 14, 2025 at 04:07 Date of Discharge: Apr 17, 2025 Labs/Diagnostic Data: Laboratory Results Test 04/17/25 06:38 04/17/25 06:14 04/16/25 16:07 04/14/25 05:50 POC Glucose 111 mg/dl (70-106) White Blood Count 8.3 10^3/uL (4.4-10.8) Red Blood Count 3.95 10^6/uL (4.0-5.20) Hemoglobin 12.5 g/dL (12.2-16.2) Hematocrit 36.5 % (36.0-46.0) Mean Corpuscular Volume 92.5 fL (80.0-100.0) Mean Corpuscular Hemoglobin 31.7 pg (28.0-32.0) Mean Corpuscular Hemoglobin Concent 34.3 g/dL (32.0-36.0) Red Cell Distribution Width 14.7 % (11.8-14.3) Platelet Count 239 10^3/uL (140-450) Mean Platelet Volume 7.3 fL (6.9-10.8) Neutrophils (%) (Auto) 72.5 % (37.0-80.0) Lymphocytes (%) (Auto) 20.1 % (10.0-50.0) Monocytes (%) (Auto) 6.8 % (0.0-12.0) Eosinophils (%) (Auto) 0.4 % (0.0-7.0) Basophils (%) (Auto) 0.2 % (0.0-2.0) Neutrophils # (Auto) 6.0 10 ^3/uL (1.6-8.6) Lymphocytes # (Auto) 1.7 10 ^3/uL (0.4-5.4) Monocytes # (Auto) 0.6 10 ^3/uL (0-1.3) Eosinophils # (Auto) 0 10 ^3/uL (0-0.8) Basophils # (Auto) 0 10 ^3/uL (0-0.2) Nucleated Red Blood Cells 0.0 % Sodium Level 137 mmol/L (136-145) Potassium Level 3.1 mmol/L (3.5-5.1) Chloride Level 97 mmol/L (98-107) Carbon Dioxide Level 28 mmol/L (20-31) Anion Gap 12 (5-15) Blood Urea Nitrogen 14 mg/dL (9-23) Creatinine 0.67 mg/dL (0.550-1.02) Glomerular Filtration Rate Calc 96 mL/min (>90) BUN/Creatinine Ratio 20.9 (10.0-20.0) Serum Glucose 103 mg/dL (74-106) Calcium Level 9.2 mg/dL (8.7-10.4) Total Bilirubin 1.1 mg/dL (0.2-1.0) Aspartate Amino Transferase (AST) 25 U/L (13-40) Alanine Aminotransferase (ALT) 31 U/L (7-40) Alkaline Phosphatase 93 U/L (46-116) Total Protein 5.6 g/dL (5.7-8.2) Albumin 3.6 g/dL (3.2-4.8) Magnesium Level 1.7 mg/dL (1.6-2.6) Hemoglobin A1c > 14.0 % A1C (<5.7) Test 04/14/25 04:20 04/13/25 23:24 04/13/25 22:29 Urine Color Colorless (Yellow) Urine Clarity Clear (Clear) Urine pH 5.0 (5.0-9.0) Urine Specific [place] 1.031 (1.001-1.035) Urine Protein Negative (Negative) Urine Ketones Negative (Negative) Urine Blood Negative /uL (Negative) Urine Nitrite 2+ (Negative) Urine Bilirubin Negative (Negative) Urine Urobilinogen Normal mg/dL (Negative) Urine Leukocyte Esterase Trace /uL (Negative) Urine RBC 4 /hpf (0 - 4) Urine Microscopic WBC 3 /HPF (0-5) Urine Squamous Epithelial Cells Few /hpf (<5) Urine Bacteria None seen /hpf (None Seen) Urine Yeast (Budding) Occasional /hpf (None Urine Glucose 4+ mg/dL (Normal) Troponin I High Sensitivity 4 ng/L (</=34) Differential Total Cells Counted 100.0 (100) Neutrophils % (Manual) 95 (37.0-80.0) Band Neutrophils % (Manual) 1 Lymphocytes % (Manual) 3 (10.0-50.0) Monocytes % (Manual) 1 (0-12) Eosinophils % (Manual) 0 (0-7) Basophils % (Manual) 0 (0.0-2.0) Metamyelocytes % (manual) 0 Myelocytes % (Manual) 0 Promyelocytes % (Manual) 0 Blast Cells % (Manual) 0 Reactive Lymphocytes 0 Platelet Estimate Adequate Anisocytosis (manual) Slight B-Type Natriuretic Peptide 50.39 pg/mL (0-100) Other Laboratory Tests 04/17/25 06:14 Brief Hx & Hospital Course: 65-year-old female with past history of diabetes mellitus and hypertension presented with bilateral swollen feet and numbness in the left foot, which led to loss of balance. History of tingling in both feet and changes in the vision. No history of loss of consciousness, dizziness, burning micturition or bowel or bladder changes. Blood glucose at the time of presentation in ED was 763 mg/dL. 04/17/25. Patient was evaluated at bedside, vital signs were reviewed. Patient reports feeling well, no nausea, vomit or fever. Patient will be discharged today with the following medications: Jardiance 25 mg PO QD, glipizide 5 mg PO QD, Lantus 20 U every nigh. Follow up with PCP in 1 week. Also the following recommendations were made: start blood check, elevate legs every night, compressing stockings, continue low Carbohydrate, renal and cardiac diet, physical activity as tolerated. ROS: Constitutional: Denies weight loss, fever and chills. HEENT: Changes in vision over last 3 years. Respiratory: Denies shortness of breath and cough Cardiovascular: Denies chest discomfort or palpitations GI: Denies abdominal pain, nausea, vomiting and diarrhea. : Denies dysuria and urinary frequency. Musculoskeletal: Denies myalgias and joint pain Skin: Denies rash and pruritus. Neurological: Denies dizziness, headache or hearing problems Examination General: Patient alert and oriented in person, place and time. Patient following commands. HEENT: Normocephalic, atraumatic, moist mucous membranes Respiratory/pulmonary: Clear lungs bilaterally, no associated crackles or wheezes. Cardiovascular: Normal heart sounds S1 and S2 with no associated murmurs Extremities: Pitting edema present in lower extremities bilaterally. Sensation equal in both limbs. Bruising around the right wrist and left knee. Skin: No rashes or pruritus. Neurological: Intact cranial nerves with no focal neurologic deficits. Problem List/Assessment/Plan 1. Acute renal failure, prerenal, vasomotor nephropathy. Resolved 2. Leukocytosis SIRS without acute organ damage. Resolved 3. Type 2 diabetes mellitus, hyperglycemia, neuropathy, nephropathy - Continue pregabalin 25 mg b.i.d. p.o. - Hyperglycemia managed with Lantus and regular insulin sliding scale - Started on basal bolus insulin. Continue Lantus 20 units. Start lispro 4 units with before each meal. - Nephropathy ruled out 4. Hypertension Continue with Enalapril 20 mg daily 5. DVT ruled out - Doppler negative for DVT. -Prevention recommendations 6. Venous insufficiency -Compression stocking -Leg elevation every night 7.Electrolyte imbalance - K+ rich diet. -Keep hydrated. Goals of care discussed with the patient at bedside for more than 35 minutes. Plan discussed with Dr. Alegria Plan discussed with: Patient, patient agreed with the plan. Condition at Discharge: Stable Final Diagnosis/Problems List -EDWARD, pre renal, Vasomotor nephropathy -DM type 2 with hyperglycemia -Hyponantremia Discharge Disposition: Home SNF Discharge Will this Physician continue t: No Discharge Instruct/Medications Diet: Consistent carbohydrate, Cardiac 2g Na,low cholest, Renal Activity: No Restrictions, As Tolerated Follow Up/Referral: Follow up with PCP in 1 week Medications: Continue with home meds. -Start Jardians 25 mg PO QD -Start glypizide 5 mg PO QD -Lantus 20 U, night time -Please send blood check device to patient with test strips and lancets. Scheduled Empagliflozin (Jardiance), 10 MG PO DAILY Enalapril Maleate (Enalapril Maleate), 20 MG PO DAILY, (Reported) Fenofibrate (Fenofibrate), 160 MG OR DAILY, (Reported) Furosemide (Furosemide), 1 TAB PO DAILY Glipizide (Glipizide), 10 MG PO BID, (Reported) Glipizide (Glipizide), 1 TAB PO DAILY Glucose Blood (Easy Touch Glucose Test S), 1 EA TID Hydrochlorothiazide (Hydrochlorothiazide), 12.5 MG PO DAILY, (Reported) Insulin Glargine (Lantus), 20 UNIT SC DAILY Durable Medical Equipment Blood Glucose Monitoring Suppl (Easy Touch Glucose [place]), EA XX TID, (DME) Lancets (Easy Comfort Lancets Twis), MIS XX TID, (DME) Discharge Statement: "Patient was advised to return to the ER or call 911 if any headaches, dizziness, shortness of breath, chest pain, abdominal pain, bleeding, fevers, or worsening of medical condition. Patient was counseled about treatment plan, medications, possible side effects, patientverbalized understanding. All questions were answered to the best of my ability. This discharge took greater then 30 minutes in planning, reviewing documentation, counseling the patient, and discussing with other team members." ASSESSMENT ASSESSMENT Assessment -EDWARD, pre renal, Vasomotor nephropathy -DM type 2 with hyperglycemia -Hyponantremia CLAUDETTE THORNTON RESIDENT Apr 17, 2025 13:59
[2025-04-17] MEDS ORDERED: BLOO-169 XX (14:17)
[2025-04-17] MEDS ORDERED: EMPA1TAB PO (14:17)
[2025-04-17] MEDS ORDERED: GLUC-224 VI (14:17)
[2025-04-17] MEDS ORDERED: [UNRECOGNIZED DRUG - CODE] XX (14:17)
[2025-04-17] MEDS ORDERED: GLIP5TAB21 PO (14:17)
[2025-04-17] MEDS ORDERED: INSLANTI SC (14:17)
[2025-04-17] MEDS ORDERED: FURO20TA3 PO (14:44)
--- NOTE | 2025-04-17 15:43 | DVHDSRES ---
Discharge Summary Date of Admission Resident Creating Document: REYNALDO US RESIDENT Apr 14, 2025 at 04:07 Date of Discharge: Apr 17, 2025 Labs/Diagnostic Data: Laboratory Results Test 04/17/25 06:38 04/17/25 06:14 04/16/25 16:07 04/14/25 05:50 POC Glucose 111 mg/dl (70-106) White Blood Count 8.3 10^3/uL (4.4-10.8) Red Blood Count 3.95 10^6/uL (4.0-5.20) Hemoglobin 12.5 g/dL (12.2-16.2) Hematocrit 36.5 % (36.0-46.0) Mean Corpuscular Volume 92.5 fL (80.0-100.0) Mean Corpuscular Hemoglobin 31.7 pg (28.0-32.0) Mean Corpuscular Hemoglobin Concent 34.3 g/dL (32.0-36.0) Red Cell Distribution Width 14.7 % (11.8-14.3) Platelet Count 239 10^3/uL (140-450) Mean Platelet Volume 7.3 fL (6.9-10.8) Neutrophils (%) (Auto) 72.5 % (37.0-80.0) Lymphocytes (%) (Auto) 20.1 % (10.0-50.0) Monocytes (%) (Auto) 6.8 % (0.0-12.0) Eosinophils (%) (Auto) 0.4 % (0.0-7.0) Basophils (%) (Auto) 0.2 % (0.0-2.0) Neutrophils # (Auto) 6.0 10 ^3/uL (1.6-8.6) Lymphocytes # (Auto) 1.7 10 ^3/uL (0.4-5.4) Monocytes # (Auto) 0.6 10 ^3/uL (0-1.3) Eosinophils # (Auto) 0 10 ^3/uL (0-0.8) Basophils # (Auto) 0 10 ^3/uL (0-0.2) Nucleated Red Blood Cells 0.0 % Sodium Level 137 mmol/L (136-145) Potassium Level 3.1 mmol/L (3.5-5.1) Chloride Level 97 mmol/L (98-107) Carbon Dioxide Level 28 mmol/L (20-31) Anion Gap 12 (5-15) Blood Urea Nitrogen 14 mg/dL (9-23) Creatinine 0.67 mg/dL (0.550-1.02) Glomerular Filtration Rate Calc 96 mL/min (>90) BUN/Creatinine Ratio 20.9 (10.0-20.0) Serum Glucose 103 mg/dL (74-106) Calcium Level 9.2 mg/dL (8.7-10.4) Total Bilirubin 1.1 mg/dL (0.2-1.0) Aspartate Amino Transferase (AST) 25 U/L (13-40) Alanine Aminotransferase (ALT) 31 U/L (7-40) Alkaline Phosphatase 93 U/L (46-116) Total Protein 5.6 g/dL (5.7-8.2) Albumin 3.6 g/dL (3.2-4.8) Magnesium Level 1.7 mg/dL (1.6-2.6) Hemoglobin A1c > 14.0 % A1C (<5.7) Test 04/14/25 04:20 04/13/25 23:24 04/13/25 22:29 Urine Color Colorless (Yellow) Urine Clarity Clear (Clear) Urine pH 5.0 (5.0-9.0) Urine Specific [place] 1.031 (1.001-1.035) Urine Protein Negative (Negative) Urine Ketones Negative (Negative) Urine Blood Negative /uL (Negative) Urine Nitrite 2+ (Negative) Urine Bilirubin Negative (Negative) Urine Urobilinogen Normal mg/dL (Negative) Urine Leukocyte Esterase Trace /uL (Negative) Urine RBC 4 /hpf (0 - 4) Urine Microscopic WBC 3 /HPF (0-5) Urine Squamous Epithelial Cells Few /hpf (<5) Urine Bacteria None seen /hpf (None Seen) Urine Yeast (Budding) Occasional /hpf (None Urine Glucose 4+ mg/dL (Normal) Troponin I High Sensitivity 4 ng/L (</=34) Differential Total Cells Counted 100.0 (100) Neutrophils % (Manual) 95 (37.0-80.0) Band Neutrophils % (Manual) 1 Lymphocytes % (Manual) 3 (10.0-50.0) Monocytes % (Manual) 1 (0-12) Eosinophils % (Manual) 0 (0-7) Basophils % (Manual) 0 (0.0-2.0) Metamyelocytes % (manual) 0 Myelocytes % (Manual) 0 Promyelocytes % (Manual) 0 Blast Cells % (Manual) 0 Reactive Lymphocytes 0 Platelet Estimate Adequate Anisocytosis (manual) Slight B-Type Natriuretic Peptide 50.39 pg/mL (0-100) Other Laboratory Tests 04/17/25 06:14 Brief Hx & Hospital Course: 65-year-old female with past history of diabetes mellitus and hypertension presented with bilateral swollen feet and numbness in the left foot, which led to loss of balance. History of tingling in both feet and changes in the vision. No history of loss of consciousness, dizziness, burning micturition or bowel or bladder changes. Blood glucose at the time of presentation in ED was 763 mg/dL. 04/17/25: Today, the patient is feeling well, her swelling has reduced, her glucose level is 111 mg/dl. Patient will be discharged today. Review of systems: Constitutional: Denies weight loss, fever and chills. HEENT: Changes in vision over last 3 years. Respiratory: Denies shortness of breath and cough Cardiovascular: Denies chest discomfort or palpitations GI: Denies abdominal pain, nausea, vomiting and diarrhea. : Denies dysuria and urinary frequency. Musculoskeletal: Denies myalgias and joint pain. Skin: Denies rash and pruritus. Neurological: Denies dizziness, headache or hearing problems Examination General: Patient alert and oriented in person, place and time. Patient following commands. HEENT: Normocephalic, atraumatic, moist mucous membranes Respiratory/pulmonary: Clear lungs bilaterally, no associated crackles or wheezes. Cardiovascular: Normal heart sounds S1 and S2 with no associated murmurs Extremities: Pitting edema present in lower extremities bilaterally. Sensation equal in both limbs. Bruising around the right wrist and left knee. Skin: No rashes or pruritus. Neurological: Intact cranial nerves with no focal neurologic deficits. Problem List/Assessment/Plan 1. Acute renal failure, prerenal, -Vasomotor nephropathy resolved. creatinine 0.67 -Improvement in dehydration; Discontinued IV fluids. 2. Leukocytosis SIRS without acute organ damage - Neutrophilia seen on CBC. Today, WBC 8.3 - CXR is unremarkable 3. Type 2 diabetes mellitus, hyperglycemia, neuropathy, nephropathy -Lantus 20 U at night -Glipizide 5 mg po -Jardiance 10 mg po -Q-check at home -F/U with PCP -Diet low Carbohidrats 4. Hypertension - Continue furosemide 40 mg and enalapril 20 mg daily 4. DVT 5. Venous insufficiency - Compression stockings -Legs elevation at night 6. Hyponatremia 7. Hypokalemia 8. Hypochloremia -increase potassium intake in diet. Goals of care discussed with the patient at bedside for more than 35 minutes. Patient agreed with the plan. Plan discussed with Dr. Alegria Condition at Discharge: Stable Final Diagnosis/Problems List -EDWARD, pre renal, Vasomotor nephropathy -DM type 2 with hyperglycemia -Hyponantremia Discharge Disposition: Home SNF Discharge Will this Physician continue t: No Discharge Instruct/Medications Diet: Consistent carbohydrate, Cardiac 2g Na,low cholest, Renal Activity: No Restrictions, As Tolerated Follow Up/Referral: Follow up with PCP in 1 week Medications: Continue with home meds. -Start Jardians 25 mg PO QD -Start glypizide 5 mg PO QD -Lantus 20 U, night time -Please send blood check device to patient with test strips and lancets. Scheduled Empagliflozin (Jardiance), 10 MG PO DAILY Enalapril Maleate (Enalapril Maleate), 20 MG PO DAILY, (Reported) Fenofibrate (Fenofibrate), 160 MG OR DAILY, (Reported) Furosemide (Furosemide), 1 TAB PO DAILY Glipizide (Glipizide), 10 MG PO BID, (Reported) Glipizide (Glipizide), 1 TAB PO DAILY Glucose Blood (Easy Touch Glucose Test S), 1 EA TID Hydrochlorothiazide (Hydrochlorothiazide), 12.5 MG PO DAILY, (Reported) Insulin Glargine (Lantus), 20 UNIT SC DAILY Durable Medical Equipment Blood Glucose Monitoring Suppl (Easy Touch Glucose [place]), EA XX TID, (DME) Lancets (Easy Comfort Lancets Twis), MIS XX TID, (DME) Discharge Statement: "Patient was advised to return to the ER or call 911 if any headaches, dizziness, shortness of breath, chest pain, abdominal pain, bleeding, fevers, or worsening of medical condition. Patient was counseled about treatment plan, medications, possible side effects, patientverbalized understanding. All questions were answered to the best of my ability. This discharge took greater then 30 minutes in planning, reviewing documentation, counseling the patient, and discussing with other team members." ASSESSMENT ASSESSMENT Assessment -EDWARD, pre renal, Vasomotor nephropathy -DM type 2 with hyperglycemia -Hyponantremia CLAUDETTE THORNTON RESIDENT Apr 17, 2025 15:43
== END 2025-04-17 16:36 | disposition home or self-care (01) | DRG 637 ==
LOC: ER 22:05 → OVERFLOW 04-14 04:07 → WEST WING 04-14 13:30
PROVIDERS: ADMIT Student in an Organized Health Care Education/Training Program; ATTEND Internal Medicine
DX: E11.65 Type 2 diabetes mellitus with hyperglycemia (principal); N17.0 Acute kidney failure with tubular necrosis; E87.1 Hypo-osmolality and hyponatremia; I13.0 Hypertensive heart and chronic kidney disease with heart failure and stage 1 through stage 4 chronic kidney disease, or unspecified chronic kidney disease; R65.10 Systemic inflammatory response syndrome (SIRS) of non-infectious origin without acute organ dysfunction; I50.9 Heart failure, unspecified; N18.9 Chronic kidney disease, unspecified; E66.9 Obesity, unspecified; E11.22 Type 2 diabetes mellitus with diabetic chronic kidney disease; Z68.36 Body mass index [BMI] 36.0-36.9, adult; E11.40 Type 2 diabetes mellitus with diabetic neuropathy, unspecified; E87.6 Hypokalemia; E87.8 Other disorders of electrolyte and fluid balance, not elsewhere classified; I87.2 Venous insufficiency (chronic) (peripheral); E86.0 Dehydration; D72.829 Elevated white blood cell count, unspecified
CPT/HCPCS: 36415; 71045; 80048; 80053; 81001; 82962; 83036; 83735; 83880; 84132; 84484; 85007; 85025; 85027; 93306; 93970; 96361; 96372; 96374; G0378; J1815